=== PATIENT | female | born 1945 | race Caucasian/White ===

== ENCOUNTER → 2021-10-16 10:18 | Outpatient (CLI) | payer MEDICARE, SELFPAY ==
--- NOTE | ~2021-10-16 | XR_ITS ---
EXAMINATION: XR chest 2V DATE: 10/16/2021 10:39 INDICATION: Cough TECHNIQUE: PA and lateral views of the chest are obtained. COMPARISON: None available FINDINGS: The lungs are free of acute opacities. There is no pleural effusion or pneumothorax. The ca rdiomediastinal silhouette is normal. There is moderate thoracic spondylosis. There is elevation of t he right hemidiaphragm. IMPRESSION: 1. No acute cardiopulmonary abnormality. 2. Elevation of the right hemidiaphragm, reportedly a known diagnosis. Reviewed, dictated and finalized at location [facility]
== END ==
PROVIDERS: Visit Provider Emergency Medicine
DX: J06.9 Acute upper respiratory infection, unspecified (principal); R05.9 Cough, unspecified; R91.8 Other nonspecific abnormal finding of lung field
CPT/HCPCS: 71046